=== PATIENT | female | born 1995 | race African-American/Black ===

== ENCOUNTER 2025-03-15 12:52 | Emergency (ER) | payer SELFPAY ==
[~2025-03-15] VITALS: Ht 167.6 cm; Wt 63.0 kg
[2025-03-15 12:55] VITALS: O2SAT 99
[2025-03-15 12:59] VITALS: BP 115/67; PULSE 85; RESP 18; TEMP 36.8; O2SAT 100
[2025-03-15] MEDS: ONDANSETRON 4MG ODT PO ONE (16:14)
[2025-03-15] MEDS: ACETAMINOPHEN 325MG TABLET PO ONE (16:14)
[2025-03-15 16:26] LABS: HEMATOCRIT 35.1 % (36.0-48.0); HEMOGLOBIN 11.8 g/dL (12.0-16.0); MEAN CORPUSCULAR HEMOGLOBIN 31.8 pg (28.0-32.0); MEAN CORPUSCULAR HGB CONC 33.5 g/dL (31.0-37.0); PLATELET 252 x1000/uL (130-400); RED BLOOD CELL COUNT 3.69 mill/uL (4.2-5.4); RED CELL DISTRIBUTION WIDTH 12.4 % (11.6-14.6)
[2025-03-15 16:35] LABS: CHLORIDE 105 mEq/L (98-107); POTASSIUM 3.7 mEq/L (3.5-5.1); SODIUM 138 mEq/L (136-145)
[2025-03-15 16:36] LABS: CARBON DIOXIDE 26 mEq/L (21-32)
[2025-03-15 16:41] LABS: CREATININE 0.7 mg/dL (0.6-1.0); GLUCOSE 80 mg/dL (70-105); UREA NITROGEN BLOOD 7 mg/dL (9-23)
[2025-03-15 16:43] LABS: ALANINE AMINOTRANSFERASE 8 IU/L (10-49); ALBUMIN 4.3 g/dL (3.2-4.8); ASPARTATE AMINOTRANSFERASE 14 IU/L (<34); BILIRUBIN TOTAL 1.1 mg/dL (0.1-1.0); PROTEIN TOTAL 7.8 g/dL (6.0-8.3)
[2025-03-15 16:45] LABS: HCG SCREEN NEGATIVE
[2025-03-15] MEDS: SODIUM CHLORIDE 0.9% 500 ML IV ONE (16:45)
[2025-03-15] MEDS: METOCLOPRAMIDE HCL 10MG/2ML VIAL IV ONE (16:45)
== END 2025-03-15 17:41 | disposition home or self-care (01) ==
LOC: ER 12:52
DX: R51.9 Headache, unspecified (principal); Z98.890 Other specified postprocedural states
CPT/HCPCS: 80053; 84703; 85027; 36415; 70450; 96361; 96374; 99285; Q0162; J2765; J7040; Z7610

== ENCOUNTER 2025-08-26 18:16 | Emergency (ER) | payer MEDICAID ==
[~2025-08-26] VITALS: Ht 157.5 cm; Wt 61.0 kg
[2025-08-26 18:30] VITALS: O2SAT 100
[2025-08-26] MEDS: IBUPROFEN 600MG TABLET PO ONE (20:09)
[2025-08-26 20:16] LABS: BASOPHILS % 0.7 % (0.0-2.0); EOSINOPHILS % 0.5 % (0.0-5.0); HEMATOCRIT. 34.1 % (36.0-48.0); HEMOGLOBIN. 11.2 g/dL (12.0-16.0); LYMPHOCYTES % 39.0 % (20.0-50.0); MEAN PLATELET VOLUME 8.5 fl (7.4-10.4); MONOCYTES % 8.2 % (2.0-8.0); NEUTROPHILS % 51.6 % (40.0-76.0); PLATELET 225 x1000/uL (130-400); RED BLOOD CELL COUNT 3.56 mill/uL (4.2-5.4); RED CELL DISTRIBUTION WIDTH 12.6 % (11.6-14.6)
[2025-08-26 20:29] LABS: CREATININE 0.7 mg/dL (0.6-1.0); UREA NITROGEN BLOOD 7 mg/dL (9-23)
[2025-08-26] MEDS ORDERED: NAPR-681 PO (21:10)
[2025-08-26 21:20] VITALS: BP 122/71; PULSE 72; RESP 18; TEMP 37.3; O2SAT 99
== END 2025-08-26 21:23 | disposition home or self-care (01) ==
LOC: ER 18:16
DX: M25.561 Pain in right knee (principal); M25.562 Pain in left knee
CPT/HCPCS: 36415; 73562; 80048; 81025; 85025; 93970; 99284